=== PATIENT | female | born 2005 | race Caucasian/White ===

== ENCOUNTER 2024-11-08 11:01 | Emergency (ER) | payer MEDICAID ==
[2024-11-08] MEDS: Albuterol 0.042% 1.25 MG/3 ML Neb Soln NEB ONE (11:15)
[2024-11-08] MEDS: Albuterol/Ipratropium 3.0-0.5 MG/3 ML Neb Soln NEB ONE (11:30)
== END 2024-11-08 11:50 | disposition home or self-care (01) ==
LOC: VM.ED 11:01
DX: O99.511 Diseases of the respiratory system complicating pregnancy, first trimester (principal); J45.909 Unspecified asthma, uncomplicated; Z3A.11 11 weeks gestation of pregnancy
CPT/HCPCS: 94640; 99284; A9270-GY; J7620-GY